=== PATIENT | female | born 1945 ===

== ENCOUNTER 2018-02-09 12:10 | Observation (INO) | payer OTHER ==
[2018-02-09 12:37] VITALS: BMI 31.8
[2018-02-09] MEDS ORDERED: Sodium Chloride 0.9% 1,000 ML IV ONE ×3 (12:54→18:02)
[2018-02-09] MEDS ORDERED: Dextrose 50% SYRINGE Inj (50 ml) IVP STA (12:54)
[2018-02-09] MEDS ORDERED: Dextrose 50% SYRINGE Inj (50 ml) ONE ×2 (13:10→16:33)
[2018-02-09 13:23] LABS: BASO # 0.1 K/uL (0.0-0.2); BASO % 1.2 % (0.0-2.0); EOS # 0.3 K/uL (0.0-0.7); EOS % 3.1 % (0.0-4.0); HEMOGLOBIN 11.8 g/dL (11.0-16.0); LYMPH # 2.6 K/uL (1.0-4.3); LYMPH % 31.1 % (20.0-40.0); MEAN CELL VOLUME 91.1 fL (81.0-99.0); MEAN CORPUSCULAR HEMOGLOBIN 30.9 pg (27.0-31.0); MEAN CORPUSCULAR HGB CONC 33.9 g/dL (33.0-37.0); MONO # 0.7 K/uL (0.0-0.8); NEUT # 4.8 K/uL (1.8-7.0); NEUT % 56.6 % (50.0-75.0); RBC 3.81 Mil/uL (3.80-5.20); RED CELL DISTRIBUTION WIDTH 13.9 % (11.5-14.5); WHITE BLOOD COUNT 8.5 K/uL (4.8-10.8)
[2018-02-09 13:24] LABS: VENOUS BLOOD GAS BASE EXCESS -9.6 mmol/L (0.0-2.0); VENOUS BLOOD GAS PCO2 68 mmHg (40-60); VENOUS BLOOD GAS PO2 40 mm/Hg (30-55)
[2018-02-09] MEDS ORDERED: Sodium Chloride 0.9% 1,000 ML ONE (13:33)
[2018-02-09 13:35] LABS: ALB/GLOB RATIO 1.1 (1.0-2.1); ALT/SGPT 28 U/L (9-52); AST/SGOT 19 U/L (14-36); BLOOD UREA NITROGEN 22 mg/dL (7-17); CALCIUM 9.6 mg/dl (8.6-10.4); GFR AFRICAN-AMERICAN > 60; GFR NON-AFRICAN AMERICAN 54; LIPASE 65 U/L (23-300)
--- NOTE | 2018-02-09 13:35 | RAD ---
PROCEDURE: CHEST RADIOGRAPH, 1 VIEW HISTORY: Diabetic COMPARISON: None available. FINDINGS: LUNGS: Poor inspiration with low lung volumes, crowded bronchovascular markings and minor bibasilar atelectasis. PLEURA: No pneumothorax or pleural fluid seen. CARDIOVASCULAR: Cardiomegaly. OSSEOUS STRUCTURES: No significant abnormalities. VISUALIZED UPPER ABDOMEN: Normal. OTHER FINDINGS: None. IMPRESSION: Poor inspiration with low lung volumes, crowded bronchovascular markings and minor bibasilar atelectasis. Cardiomegaly.
--- NOTE | 2018-02-09 14:03 | C.PDOC ---
History Of Present Illness 72 yo female w/PMHx of IDDM, HTN, hypercholesterolemia come in accompanied by son for evaluation of gradual onset of Right lower back pain radiating down to Right leg/foot for past week. As per son, pt had appendectomy at [facility] 2 weeks ago " and after the surgery developed back pain". Son reports, pt was seen by PMD and was given Percocet without improvement in pain. Otherwise, pt and son denies fever, chills, cough, CP, SOB, dyspnea, palpitation, diaphoresis, abd. pain ( contrary to triage), V/D, UTI sx, denies saddle anesthesia, incontinence, denies weakness, sensory or vascular deficits to B/L LEs. On triage, pt was found to be hypoglycemic, admits feels some nauseous. Ambulate to ED, not in any apparent distress. Time Seen by Provider: 02/09/18 12:27 Chief Complaint (Nursing): Abdominal Pain History Per: Patient, Family Past Medical History Reviewed: Historical Data, Nursing Documentation, Vital Signs Vital Signs: Last Vital Signs Temp 98.4 F 02/09/18 12:27 Pulse 95 H 02/09/18 14:33 Resp 18 02/09/18 14:33 BP 130/65 02/09/18 14:33 Pulse Ox 100 02/09/18 14:35 - Medical History PMH: Anxiety, Arthritis, Asthma, Diabetes (type 2), Fractures (LEFT ARM), HTN Denies: Chronic Kidney Disease Surgical History: Appendectomy (01/2018) - [facility] Procedures COLONOSCOPY (02/17/13) ESOPHAGOGASTRODUODENOSCOPY [EGD] W/CLOSED BIOPSY (02/17/13) Family History: States: Unknown Family Hx - Social History Hx Alcohol Use: No (Former) Hx Substance Use: No - Immunization History Hx Tetanus Toxoid Vaccination: No Hx Influenza Vaccination: No Hx Pneumococcal Vaccination: No Review Of Systems Except As Marked, All Systems Reviewed And Found Negative. Constitutional: Negative for: Fever, Chills Eyes: Negative for: Vision Change ENT: Negative for: Throat Pain Cardiovascular: Negative for: Chest Pain, Palpitations Respiratory: Negative for: Cough, Shortness of Breath, Wheezing Gastrointestinal: Positive for: Nausea. Negative for: Vomiting, Abdominal Pain , Diarrhea Genitourinary: Negative for: Incontinence Musculoskeletal: Positive for: Back Pain. Negative for: Neck Pain Skin: Negative for: Rash Neurological: Negative for: Weakness, Numbness, Altered Mental Status, Headache , Dizziness Physical Exam - Physical Exam Appears: Well, No Acute Distress Skin: Normal Color, Warm, Dry Eye(s): bilateral: PERRL Nose: No Flaring, No Discharge Oral Mucosa: Moist, No Drooling Tongue: Normal Appearing Lips: Normal Appearing Throat: No Erythema, No Drooling Neck: Trachea Midline, Supple Cardiovascular: Rhythm Regular, No Murmur, No JVD Respiratory: No Decreased Breath Sounds, No Accessory Muscle Use, No Stridor, No Wheezing Gastrointestinal/Abdominal: Soft, Tenderness (mild RLQ, no palpabe mass, no skin changes. Well healing ), No Distention, No Guarding, No Rebound Back: No CVA Tenderness, No Vertebral Tenderness, Paraspinal Tenderness (Right lumbar extend down to Right gluteal area) Extremity: Normal ROM, No Tenderness, No Pedal Edema, No Deformity, No Swelling Neurological/Psych: Oriented x3, Normal Speech, Normal Motor, Normal Sensation, Normal Reflexes ED Course And Treatment - Laboratory Results Result Diagrams: 02/09/18 13:18 02/09/18 13:18 Lab Interpretation: No Acute Changes (ABG repeated with normal pH results) ECG: Interpreted By Me, Viewed By Me ECG Rhythm: Sinus Rhythm Interpretation Of ECG: SR@98/min,LAD, prolong QT, no acute ST-T changes. O2 Sat by Pulse Oximetry: 100 Pulse Ox Interpretation: Normal - Other Rad CXR X-Ray: Read By Radiologist Interpretation: IMPRESSION: Poor inspiration with low lung volumes, crowded bronchovascular markings and minor bibasilar atelectasis. Cardiomegaly. - CT Scan/US CT abd/pelvis Other Rad Studies (CT/US): Radiology Report Reviewed CT/US Interpretation: IMPRESSION: Apparent appendectomy. . There is a very small nearly 12 mm elliptical shaped tubular density adjacent to the a presumed metallic clips along the cecum. It is unclear whether this represents some minor postoperative sequela/scar scarring changes or residual stump of the appendix. There are some vague infiltration changes seen about this focus within the adjacent mesentery. Clinical correlation with physical exam and laboratory values recommended . Findings consistent with mild constipation. . Diverticulosis without radiographic evidence of acute diverticulitis. Mild fatty hepatic infiltration. Gallbladder incompletely distended likely due to nonfasting state which presumably accounts slight thick-walled appearance. . No evidence intraluminal gallbladder calculi. See above discussion for additional details. Progress Note: Pt was OBS in ED for 4 hours and remained unchanged. While under OBS, pt FSBS was unstable, episodes of hyperglycemia and hypoglycemia. Otherwise, afebrile, hemodynamicaly stable, non-toxic. Blood work review and appears noraml. pH- 7.38, ketones negative. AG-12. CT abd/plevis review- no acute finidngs. Case discussed with pt's PMD and admission arranged for OBS with Dx: Uncontrolled DM, dehydration. results review with pt, agrees with plan. Disposition - Disposition Disposition: HOSPITALIZED Disposition Time: 16:32 Condition: STABLE Forms: [facility] (Thai) - Clinical Impression Clinical Impression: Uncontrolled diabetes mellitus, Dehydration
[2018-02-09 14:07] LABS: ABG ALLEN TEST POS; ARTERIAL BLOOD GAS HCO3 23.5 mmol/L (21-28); ARTERIAL BLOOD GAS HEMOGLOBIN 9.9 g/dL (11.7-17.4); ARTERIAL BLOOD GAS O2 SAT 98.6 % (95-98); ARTERIAL BLOOD GAS PCO2 39 mm/Hg (35-45); ARTERIAL BLOOD GAS PH 7.38 (7.35-7.45); ARTERIAL BLOOD GAS PO2 90 mm/Hg (80-100); ARTERIAL BLOOD GAS TCO2 24.3 mmol/L (22-28)
[2018-02-09 15:44] LABS: SQUAMOUS EPITHIAL 9 /hpf (0-5); URINE BILIRUBIN NEGATIVE (NEGATIVE); URINE BLOOD NEGATIVE (NEGATIVE); URINE CLARITY Hazy (Clear); URINE COLOR Yellow (YELLOW); URINE GLUCOSE (UA) 1+ mg/dL (Normal); URINE LEUKOCYTE ESTERASE NEG Leu/uL (Negative); URINE PROTEIN 1+ mg/dL (NEGATIVE); URINE UROBILINOGEN NORMAL mg/dL (0.2-1.0)
[2018-02-09] MEDS ORDERED: Iodixanol 320 MG/ML 100 ML BOTTLE IV ONE (15:55)
[2018-02-09] MEDS ORDERED: Dextrose 50% SYRINGE Inj (50 ml) IV STA (16:34)
--- NOTE | 2018-02-09 17:21 | CT ---
PROCEDURE: CT abdomen pelvis dated 02/09/2018. HISTORY: RLQ pain s/p appendectomy COMPARISON: No prior study available comparison. TECHNIQUE: Contiguous axial images of the abdomen and pelvis performed in standard fashion following intravenous injection of approximately 100 cc 320 contrast material. Additional 2D sagittal and coronal reformats generated. Lymph Radiation dose: Total exam DLP = 929.63 mGy-cm. This CT exam was performed using one or more of the following dose reduction techniques: Automated exposure control, adjustment of the mA and/or kV according to patient size, and/or use of iterative reconstruction technique. FINDINGS: LOWER THORAX: Heart is mildly enlarged. No significant pericardial effusion. There is small hiatal hernia. Minor atelectasis seen both lung bases. LIVER: Liver exhibits relatively normal size. Minor diffuse fatty hepatic infiltration. No obvious hepatic mass or collection. GALLBLADDER AND BILE DUCTS: Gallbladder appears incompletely distended which may account for slight thick-walled appearance. Clinical correlation recommended. No evidence of intraluminal gallbladder calculi. PANCREAS: Pancreas is slightly atrophic and fatty replaced. No obvious pancreatic mass collection or calcification. SPLEEN: Spleen exhibits normal size and attenuation pattern without mass collection or calcification ADRENALS: Mildly enlarged left adrenal gland. KIDNEYS AND URETERS: Kidneys demonstrate symmetric nephrograms. No evidence of nephrolithiasis or hydronephrosis. No renal mass or collection. BLADDER: Urinary bladder is incompletely distended which may account minimal bladder wall thickening. Correlation with urinalysis suggested. . REPRODUCTIVE: There appear to be at least 2 small uterine calcifications possibly vascular in origin however the possibility of small calcified uterine fibroids not excluded. APPENDIX: The appendix is not seen and there are apparent metallic clips along the medial aspect of wall of the cecum likely related to prior appendectomy. There is a very small nearly 12 mm elliptical shaped tubular density adjacent to the a presumed metallic clips along the cecum. It is unclear whether this represents some minor postoperative sequela/scar scarring changes or residual stump of the appendix. . These findings are best seen on coronal image number [id number] and axial image number [id number]. . There are some vague infiltration changes seen about this focus within the adjacent mesentery. Clinical correlation with physical exam and laboratory values recommended BOWEL: Evaluation of the bowel is somewhat limited due to the lack of oral contrast material. Stomach is distended with of liquid and air . Presumed pill artifact within the distal gastric antrum visualized loops of small bowel exhibit normal contour and caliber. No evidence of mechanical small bowel obstruction. Moderate amount of stool seen throughout the large-bowel more so on the right side suggesting mild fecal retention/constipation. Scattered colonic diverticula the bulk which arise from sigmoid and distal descending colon. PERITONEUM: Unremarkable. No fluid collection. No free air. There is a small fat containing umbilical hernia. LYMPH NODES: Unremarkable. No enlarged lymph nodes. VASCULATURE: Unremarkable. No aortic aneurysm. BONES: Mild multilevel degenerative spondylosis of the lower thoracic and lumbar spine. OTHER FINDINGS: None. IMPRESSION: Apparent appendectomy. . There is a very small nearly 12 mm elliptical shaped tubular density adjacent to the a presumed metallic clips along the cecum. It is unclear whether this represents some minor postoperative sequela/scar scarring changes or residual stump of the appendix. There are some vague infiltration changes seen about this focus within the adjacent mesentery. Clinical correlation with physical exam and laboratory values recommended . Findings consistent with mild constipation. . Diverticulosis without radiographic evidence of acute diverticulitis. Mild fatty hepatic infiltration. Gallbladder incompletely distended likely due to nonfasting state which presumably accounts slight thick-walled appearance. . No evidence intraluminal gallbladder calculi. See above discussion for additional details.
[2018-02-09 17:52] VITALS: RESP 20
[2018-02-09] MEDS ORDERED: Albuterol 0.083% Inhal Sol (2.5 mg/3 mL) UD INH PRN (20:21)
[2018-02-09] MEDS ORDERED: Oxycodone/Acetaminophen 5/325 mg Tab PO PRN (20:26)
[2018-02-09] MEDS ORDERED: guaiFENesin 200 mg/10 ml Syrup UD PO PRN (20:39)
[2018-02-09] MEDS ORDERED: guaiFENesin 200 mg/10 ml Syrup UD PO SCH (22:00)
[2018-02-09] MEDS: (Novolog) Insulin Aspart, Recombinant 100 u/ml 10 ml vial SC SCH (22:27)
[2018-02-10] MEDS: Albuterol 0.083% Inhal Sol (2.5 mg/3 mL) UD INH SCH ×3 (01:45→19:00)
[2018-02-10] MEDS ORDERED: Albuterol 0.083% Inhal Sol (2.5 mg/3 mL) UD INH SCH (02:00)
--- NOTE | 2018-02-10 03:15 | CP.PCM.HP ---
History of Present Illness - History of Present Illness History of Present Illness: CC: Back pain, weakness ,abdominal pain History Of Present Illness 72 yo female w/PMHx of IDDM, HTN, hypercholesterolemia , bronchial asthaama, depression, chronic pain with lumbago,pt had appendectomy done last week. come in accompanied by son for evaluation of gradual onset of Right lower back pain radiating down to Right leg/foot for past week. As per son, pt had appendectomy at [facility] [place] 2 weeks ago " and after the surgery developed back pain". Son reports, pt was seen by me in office and was given Percocet without improvement in pain. Otherwise, pt and son denies fever, chills, cough, CP, SOB, dyspnea, palpitation, diaphoresis, abd. pain ( contrary to triage), V/D, UTI sx, denies saddle anesthesia, incontinence, denies weakness, sensory or vascular deficits to B/L LEs. On triage, pt was found to be hypoglycemic, admits feels some nauseous. Ambulate to ED, not in any apparent distress.She was found to be hypoglycemic and her sugars were low, she was admitted to stabilize Present on Admission - Present on Admission Any Indicators Present on Admission: Yes Review of Systems - Review of Systems Systems not reviewed;Unavailable: Acuity of Condition - Constitutional Constitutional: Fatigue, Lethargy, Malaise - EENT Eyes: absent: As Per HPI, Blind Spots, Blurred Vision, Change in Vision, Decreased Night Vision, Diplopia, Discharge, Dry Eye, Exophthalmos, Floaters, Irritation, Itchy Eyes, Loss of Peripheral Vision, Pain, Photophobia, Requires Corrective Lenses, Sees Flashes, Spots in Vision, Tunnel Vision, Other Visual Disturbances, Loss of Vision, Other - Cardiovascular Cardiovascular: absent: As Per HPI, Acrocyanosis, Chest Pain, Chest Pain at Rest , Chest Pain with Activity, Claudication, Diaphoresis, Dyspnea, Dyspnea on Exertion, Edema, Irregular Heart Rhythm, Pain Radiating to Arm/Neck/Jaw, Leg Edema, Leg Ulcers, Lightheadedness, Orthopnea, Palpitations, Paroxysmal Nocturnal Dyspnea, Pedal Edema, Radiating Pain, Rapid Heart Rate, Slow Heart Rate, Syncope, Other - Respiratory Respiratory: Cough, Dyspnea - Gastrointestinal Gastrointestinal: Abdominal Pain, Dyspepsia, Nausea - Genitourinary Genitourinary: Flank Pain - Reproductive: Female Reproductive:Female: absent: As Per HPI, Amenorrhea, Amenorrhea/ Control, Currently Menstual, Cycle <21 Days, Cycle >35 Days, Cycle Variable, Menses 1-7 Days, Menses >/= 8 Days, Menses Variable, Cycle > 4 Weeks Between, No Menses for 6 Months, Heavy Menses, Light Menses, Normal Menses, Spotting Between Cycles , S/P Hysterectomy, Menopausal, Post Menopausal, Premenarche, Abnormal Vaginal Bleeding, Dysmenorrhea, Dyspareunia, Genital Lesions, Genital Pruritis, Pelvic Pain, Prolapse Symptoms, Sexual Dysfunction, Vaginal Discharge, Vaginal Dryness , Vaginal Odor, Vaginal Pruritis, Other - Musculoskeletal Musculoskeletal: Muscle Weakness, Stiffness, Tingling - Endocrine Endocrine: Fatigue, Polydipsia, Polyphagia, Polyuria Past Patient History - Past Medical History & Family History Past Medical History?: Yes - Past Social History Smoking Status: Former Smoker - CARDIAC Hx Hypertension: Yes - PULMONARY Hx Asthma: Yes - NEUROLOGICAL Hx Neurological Disorder: No - HEENT Hx HEENT Problems: Yes Hx Cataracts: Yes (RIGHT EYE IOL) - RENAL Hx Chronic Kidney Disease: No - ENDOCRINE/METABOLIC Hx Diabetes Mellitus Type 1: Yes - HEMATOLOGICAL/ONCOLOGICAL Hx Blood Disorders: No - INTEGUMENTARY Hx Dermatological Problems: No - MUSCULOSKELETAL/RHEUMATOLOGICAL Hx Arthritis: Yes Hx Falls: Yes Hx Fractures: Yes (LEFT ARM) - GASTROINTESTINAL Other/Comment: ''COLON PROBLEM'' - GENITOURINARY/GYNECOLOGICAL Hx Genitourinary Disorders: No - PSYCHIATRIC Hx Anxiety: Yes Hx Substance Use: No - SURGICAL HISTORY Hx Appendectomy: Yes (01/2018) - ANESTHESIA Hx Anesthesia: Yes Hx Anesthesia Reactions: No Hx Malignant Hyperthermia: No Meds Allergies/Adverse Reactions: Allergies Allergy/AdvReac Type Severity Reaction Status Date / Time Penicillins Allergy RASH Verified 05/21/16 11:35 Physical Exam - Constitutional Appears: Well - Head Exam Head Exam: ATRAUMATIC, NORMAL INSPECTION, NORMOCEPHALIC - Eye Exam Eye Exam: EOMI, Normal appearance, PERRL Pupil Exam: NORMAL ACCOMODATION, PERRL - ENT Exam ENT Exam: Mucous Membranes Moist, Normal Exam - Neck Exam Neck exam: Positive for: Normal Inspection - Respiratory Exam Respiratory Exam: Clear to Auscultation Bilateral, NORMAL BREATHING PATTERN - Cardiovascular Exam Cardiovascular Exam: REGULAR RHYTHM - GI/Abdominal Exam GI & Abdominal Exam: Normal Bowel Sounds, Soft. absent: Tenderness - Rectal Exam Rectal Exam: NORMAL INSPECTION - Exam Exam: Circumcision, NORMAL INSPECTION External exam: NORMAL EXTERNAL EXAM Speculum exam: NORMAL SPECULUM EXAM Bimanual exam: NORMAL BIMANUAL EXAM - Extremities Exam Extremities exam: Positive for: normal inspection - Back Exam Back exam: NORMAL INSPECTION, paraspinal tenderness - Neurological Exam Neurological exam: Alert, CN II-XII Intact, Normal Gait, Oriented x3, Reflexes Normal - Psychiatric Exam Psychiatric exam: Normal Affect, Normal Mood - Skin Skin Exam: Dry, Intact, Normal Color, Warm Results - Vital Signs Recent Vital Signs: Last Vital Signs Temp 98.1 F 02/10/18 00:00 Pulse 74 02/10/18 00:00 Resp 20 02/10/18 00:00 BP 136/81 02/10/18 00:00 Pulse Ox 97 02/10/18 00:00 - Labs Result Diagrams: 02/10/18 10:38 02/10/18 10:38 Labs: Laboratory Results - last 24 hr 02/09/18 02/09/18 02/09/18 12:35 12:36 12:54 WBC RBC Hgb Hct MCV MCH MCHC RDW Plt Count MPV Neut % (Auto) Lymph % (Auto) [place] % (Auto) Eos % (Auto) Baso % (Auto) Neut # (Auto) Lymph # (Auto) [place] # (Auto) Eos # (Auto) Baso # (Auto) Puncture Site pCO2 pO2 HCO3 ABG pH ABG Total CO2 ABG O2 Saturation ABG Base Excess ABG Hemoglobin ABG Carboxyhemoglobin POC ABG HHb (Measured) ABG Methemoglobin Mohinder Test VBG pH VBG pCO2 VBG HCO3 VBG Total CO2 VBG O2 Sat (Calc) VBG Base Excess A-a O2 Difference Respiratory Index Hgb O2 Saturation Sodium Chloride Glucose Lactate FiO2 Crit Value Called To Crit Value Called By Crit Value Read Back Blood Gas Notified Time Potassium Carbon Dioxide Anion Gap BUN Creatinine Est GFR ( Amer) Est GFR (Non-Af Amer) POC Glucose (mg/dL) 50 L 53 L 53 L Random Glucose Calcium Total Bilirubin AST ALT Alkaline Phosphatase Total Protein Albumin Globulin Albumin/Globulin Ratio Lipase Urine Color Urine Clarity Urine pH Ur Specific [place] Urine Protein Urine Glucose (UA) Urine Ketones Urine Blood Urine Nitrate Urine Bilirubin Urine Urobilinogen Ur Leukocyte Esterase Urine WBC (Auto) Urine RBC (Auto) Ur Squamous Epith Cells Hyaline Casts B-Hydroxybutyrate 02/09/18 02/09/18 02/09/18 12:56 13:15 13:18 WBC 8.5 RBC 3.81 Hgb 11.8 Hct 34.7 MCV 91.1 MCH 30.9 MCHC 33.9 RDW 13.9 Plt Count 339 MPV 10.0 Neut % (Auto) 56.6 Lymph % (Auto) 31.1 [place] % (Auto) 8.0 Eos % (Auto) 3.1 Baso % (Auto) 1.2 Neut # (Auto) 4.8 Lymph # (Auto) 2.6 [place] # (Auto) 0.7 Eos # (Auto) 0.3 Baso # (Auto) 0.1 Puncture Site pCO2 pO2 40 HCO3 ABG pH ABG Total CO2 ABG O2 Saturation ABG Base Excess ABG Hemoglobin ABG Carboxyhemoglobin POC ABG HHb (Measured) ABG Methemoglobin Mohinder Test VBG pH 7.10 L* VBG pCO2 68 H* VBG HCO3 16.2 VBG Total CO2 23.2 VBG O2 Sat (Calc) 65.3 H VBG Base Excess -9.6 L A-a O2 Difference Respiratory Index Hgb O2 Saturation Sodium 128.0 L Chloride 110.0 H Glucose 62 L Lactate 2.0 FiO2 Crit Value Called To Er nurse Crit Value Called By Celio rt Crit Value Read Back Y Blood Gas Notified Time 1323 Potassium Carbon Dioxide Anion Gap BUN Creatinine Est GFR ( Amer) Est GFR (Non-Af Amer) POC Glucose (mg/dL) 58 L Random Glucose Calcium Total Bilirubin AST ALT Alkaline Phosphatase Total Protein Albumin Globulin Albumin/Globulin Ratio Lipase Urine Color Urine Clarity Urine pH Ur Specific [place] Urine Protein Urine Glucose (UA) Urine Ketones Urine Blood Urine Nitrate Urine Bilirubin Urine Urobilinogen Ur Leukocyte Esterase Urine WBC (Auto) Urine RBC (Auto) Ur Squamous Epith Cells Hyaline Casts B-Hydroxybutyrate 02/09/18 02/09/18 02/09/18 13:18 13:26 14:00 WBC RBC Hgb Hct MCV MCH MCHC RDW Plt Count MPV Neut % (Auto) Lymph % (Auto) [place] % (Auto) Eos % (Auto) Baso % (Auto) Neut # (Auto) Lymph # (Auto) [place] # (Auto) Eos # (Auto) Baso # (Auto) Puncture Site Rba pCO2 39 pO2 90 HCO3 23.5 ABG pH 7.38 ABG Total CO2 24.3 ABG O2 Saturation 98.6 H ABG Base Excess -1.8 ABG Hemoglobin 9.9 L ABG Carboxyhemoglobin 1.6 H POC ABG HHb (Measured) 1.4 ABG Methemoglobin 1.3 Mohinder Test Pos VBG pH VBG pCO2 VBG HCO3 VBG Total CO2 VBG O2 Sat (Calc) VBG Base Excess A-a O2 Difference 11.0 Respiratory Index 0.1 Hgb O2 Saturation 95.6 Sodium 147 Chloride 109 H Glucose Lactate FiO2 21.0 Crit Value Called To Crit Value Called By Crit Value Read Back Blood Gas Notified Time Potassium 3.9 Carbon Dioxide 26 Anion Gap 16 BUN 22 H Creatinine 1.0 Est GFR ( Amer) > 60 Est GFR (Non-Af Amer) 54 POC Glucose (mg/dL) 220 H Random Glucose 68 Calcium 9.6 Total Bilirubin 0.8 AST 19 ALT 28 Alkaline Phosphatase 123 Total Protein 7.6 Albumin 4.0 Globulin 3.6 Albumin/Globulin Ratio 1.1 Lipase 65 Urine Color Urine Clarity Urine pH Ur Specific [place] Urine Protein Urine Glucose (UA) Urine Ketones Urine Blood Urine Nitrate Urine Bilirubin Urine Urobilinogen Ur Leukocyte Esterase Urine WBC (Auto) Urine RBC (Auto) Ur Squamous Epith Cells Hyaline Casts B-Hydroxybutyrate 0.09 02/09/18 02/09/18 02/09/18 14:58 15:27 17:43 WBC RBC Hgb Hct MCV MCH MCHC RDW Plt Count MPV Neut % (Auto) Lymph % (Auto) [place] % (Auto) Eos % (Auto) Baso % (Auto) Neut # (Auto) Lymph # (Auto) [place] # (Auto) Eos # (Auto) Baso # (Auto) Puncture Site pCO2 pO2 HCO3 ABG pH ABG Total CO2 ABG O2 Saturation ABG Base Excess ABG Hemoglobin ABG Carboxyhemoglobin POC ABG HHb (Measured) ABG Methemoglobin Mohinder Test VBG pH VBG pCO2 VBG HCO3 VBG Total CO2 VBG O2 Sat (Calc) VBG Base Excess A-a O2 Difference Respiratory Index Hgb O2 Saturation Sodium Chloride Glucose Lactate FiO2 Crit Value Called To Crit Value Called By Crit Value Read Back Blood Gas Notified Time Potassium Carbon Dioxide Anion Gap BUN Creatinine Est GFR ( Amer) Est GFR (Non-Af Amer) POC Glucose (mg/dL) 115 H 146 H Random Glucose Calcium Total Bilirubin AST ALT Alkaline Phosphatase Total Protein Albumin Globulin Albumin/Globulin Ratio Lipase Urine Color Yellow Urine Clarity Hazy Urine pH 5.0 Ur Specific [place] 1.023 Urine Protein 1+ H Urine Glucose (UA) 1+ Urine Ketones Negative Urine Blood Negative Urine Nitrate Negative Urine Bilirubin Negative Urine Urobilinogen Normal Ur Leukocyte Esterase Neg Urine WBC (Auto) 2 Urine RBC (Auto) 1 Ur Squamous Epith Cells 9 H Hyaline Casts 3-5 H B-Hydroxybutyrate 02/09/18 21:15 WBC RBC Hgb Hct MCV MCH MCHC RDW Plt Count MPV Neut % (Auto) Lymph % (Auto) [place] % (Auto) Eos % (Auto) Baso % (Auto) Neut # (Auto) Lymph # (Auto) [place] # (Auto) Eos # (Auto) Baso # (Auto) Puncture Site pCO2 pO2 HCO3 ABG pH ABG Total CO2 ABG O2 Saturation ABG Base Excess ABG Hemoglobin ABG Carboxyhemoglobin POC ABG HHb (Measured) ABG Methemoglobin Mohinder Test VBG pH VBG pCO2 VBG HCO3 VBG Total CO2 VBG O2 Sat (Calc) VBG Base Excess A-a O2 Difference Respiratory Index Hgb O2 Saturation Sodium Chloride Glucose Lactate FiO2 Crit Value Called To Crit Value Called By Crit Value Read Back Blood Gas Notified Time Potassium Carbon Dioxide Anion Gap BUN Creatinine Est GFR ( Amer) Est GFR (Non-Af Amer) POC Glucose (mg/dL) 181 H Random Glucose Calcium Total Bilirubin AST ALT Alkaline Phosphatase Total Protein Albumin Globulin Albumin/Globulin Ratio Lipase Urine Color Urine Clarity Urine pH Ur Specific [place] Urine Protein Urine Glucose (UA) Urine Ketones Urine Blood Urine Nitrate Urine Bilirubin Urine Urobilinogen Ur Leukocyte Esterase Urine WBC (Auto) Urine RBC (Auto) Ur Squamous Epith Cells Hyaline Casts B-Hydroxybutyrate Assessment & Plan (1) Dehydration Status: Acute (2) Uncontrolled diabetes mellitus Status: Acute (3) Hypoglycemia Status: Acute
[2018-02-10] MEDS: (Novolog) Insulin Aspart, Recombinant 100 u/ml 10 ml vial SC SCH ×4 (08:15→21:34)
[2018-02-10 10:46] LABS: BASO # 0.1 K/uL (0.0-0.2); BASO % 1.2 % (0.0-2.0); EOS # 0.3 K/uL (0.0-0.7); EOS % 3.7 % (0.0-4.0); HEMOGLOBIN 11.1 g/dL (11.0-16.0); LYMPH # 1.6 K/uL (1.0-4.3); LYMPH % 22.7 % (20.0-40.0); MEAN CELL VOLUME 91.7 fL (81.0-99.0); MEAN CORPUSCULAR HEMOGLOBIN 30.8 pg (27.0-31.0); MEAN CORPUSCULAR HGB CONC 33.6 g/dL (33.0-37.0); MEAN PLATELET VOLUME 10.5 fL (7.2-11.7); MONO # 0.5 K/uL (0.0-0.8); MONO % 6.7 % (0.0-10.0); NEUT # 4.6 K/uL (1.8-7.0); NEUT % 65.7 % (50.0-75.0); RBC 3.61 Mil/uL (3.80-5.20); RED CELL DISTRIBUTION WIDTH 14.2 % (11.5-14.5)
[2018-02-10] MEDS: Enoxaparin 40 mg Syringe SC SCH (10:57)
[2018-02-10 11:10] LABS: BLOOD UREA NITROGEN 16 mg/dL (7-17); CALCIUM 8.7 mg/dl (8.6-10.4); GFR AFRICAN-AMERICAN > 60; GFR NON-AFRICAN AMERICAN > 60
[2018-02-10] MEDS: Oxycodone/Acetaminophen 5/325 mg Tab PO PRN ×2 (11:59→22:06)
[2018-02-10] MEDS: Sacubitril/Valsartan 24-26mg Tab PO SCH (11:59)
[2018-02-10] MEDS ORDERED: Aluminum Hydroxide/Magnesium Hydroxide Susp (30 mL) PO ONE (16:45)
[2018-02-10] MEDS ORDERED: Oxycodone/Acetaminophen 5/325 mg Tab PO PRN (16:47)
[2018-02-10] MEDS: (Novolin 70/30) NPH/Regular 70/30 Units/ml 10 ml vial SC SCH (17:59)
--- NOTE | 2018-02-10 20:01 | CARD ---
APPROVED REPORT EKG Measurement Heart [id number] <Conclusion> Normal sinus rhythm Possible Left atrial enlargement Left axis deviation Left ventricular hypertrophy Nonspecific T wave abnormality Prolonged QT Abnormal ECG
--- NOTE | 2018-02-10 23:41 | CP.PCM.PN ---
Subjective - Date & Time of Evaluation Date of Evaluation: 02/10/18 Time of Evaluation: 17:35 - Subjective Subjective: Pt seen & examined at bedside Objective - Vital Signs/Intake and Output Vital Signs (last 24 hours): Temp Pulse Resp BP Pulse Ox 98.2 F 76 20 143/87 98 02/10/18 15:30 02/10/18 15:30 02/10/18 15:30 02/10/18 17:58 02/10/18 15:30 Intake and Output: 02/10/18 02/11/18 18:59 06:59 Intake Total 780 350 Balance 780 350 - Medications Medications: Current Medications Albuterol Sulfate (Albuterol 0.083% Inhal Ann Marie (2.5 Mg/3 Ml) Ud) 2.5 mg INH RQ6 [facility] Last Admin: 02/10/18 19:00 Dose: Not Given Clopidogrel Bisulfate (Plavix) 75 mg PO DAILY [facility] Last Admin: 02/10/18 10:58 Dose: 75 mg Enoxaparin Sodium (Lovenox) 40 mg SC DAILY [facility] Last Admin: 02/10/18 10:57 Dose: 40 mg Escitalopram Oxalate (Lexapro) 10 mg PO DAILY [facility] Last Admin: 02/10/18 10:59 Dose: 10 mg Famotidine (Pepcid) 20 mg PO BID [facility] Last Admin: 02/10/18 17:58 Dose: 20 mg Gabapentin (Neurontin) 100 mg PO TID [facility] Last Admin: 02/10/18 17:59 Dose: 100 mg Guaifenesin (Robitussin) 200 mg PO Q4H PRN PRN Reason: cough Insulin Aspart (Novolog) 0 unit SC ACHS [facility] PRN Reason: Protocol Last Admin: 02/10/18 21:34 Dose: Not Given Insulin Human Isoph/Insulin Regular (Novolin 70/30 (70/30 Units/Ml) 10 Ml) 40 units SC ACD [facility] Last Admin: 02/10/18 17:59 Dose: 40 units Insulin Human Isoph/Insulin Regular (Novolin 70/30 (70/30 Units/Ml) 10 Ml) 20 units SC ACB [facility] Metoprolol Tartrate (Lopressor) 25 mg PO BID [facility] Last Admin: 02/10/18 17:58 Dose: 25 mg Montelukast Sodium (Singulair) 10 mg PO HS [facility] Last Admin: 02/10/18 21:31 Dose: 10 mg Oxycodone/Acetaminophen (Percocet 5/325 Mg Tab) 1 tab PO Q4H PRN PRN Reason: Pain, moderate (4-7) Stop: 02/12/18 20:37 Last Admin: 02/10/18 22:06 Dose: 1 tab Oxycodone/Acetaminophen (Percocet 5/325 Mg Tab) 1 tab PO Q4H PRN PRN Reason: Pain, severe (8-10) Stop: 02/12/18 20:27 Sacubitril/Valsartan (Entresto 24 Mg-26 Mg) 1 tab PO DAILY [facility] Last Admin: 02/10/18 11:59 Dose: 1 tab Spironolactone (Aldactone) 25 mg PO DAILY [facility] Last Admin: 02/10/18 10:58 Dose: 25 mg - Labs Labs: 02/10/18 10:38 02/10/18 10:38 Assessment and Plan (1) Dehydration Status: Acute (2) Uncontrolled diabetes mellitus Status: Acute
[2018-02-11] MEDS: Albuterol 0.083% Inhal Sol (2.5 mg/3 mL) UD INH SCH ×4 (01:36→19:32)
[2018-02-11] MEDS ORDERED: (Novolin 70/30) NPH/Regular 70/30 Units/ml 10 ml vial SC SCH (07:30)
[2018-02-11] MEDS: (Novolog) Insulin Aspart, Recombinant 100 u/ml 10 ml vial SC SCH ×3 (07:30→17:51)
[2018-02-11 07:49] VITALS: TEMP 98.3
[2018-02-11] MEDS: Enoxaparin 40 mg Syringe SC SCH (10:47)
[2018-02-11] MEDS: Sacubitril/Valsartan 24-26mg Tab PO SCH (10:48)
[2018-02-11] MEDS: Oxycodone/Acetaminophen 5/325 mg Tab PO PRN (10:51)
--- NOTE | 2018-02-11 11:14 | RAD ---
PROCEDURE: Radiographs of the Lumbar Spine. HISTORY: rt hip pain radiating to rt leg COMPARISON: CT scan of the abdomen pelvis dated 02/09/2018. FINDINGS: BONES: Normal alignment. No listhesis. No fracture. DISC SPACES: Multilevel disc space narrowing, most prominent at L5-S1, with diffuse endplate spurring. OTHER FINDINGS: None. IMPRESSION: No acute fracture. Multilevel degenerative changes.
--- NOTE | 2018-02-11 16:05 | VASCLAB ---
PROCEDURE: Right Lower Extremity Venous Duplex Exam. HISTORY: Pain in limb PRIORS: None. TECHNIQUE: Right common femoral, femoral, popliteal and posterior tibial, peroneal and great saphenous veins were evaluated. Flow was assessed with color Doppler, compressibility, assessment of phasic flow and augmentation response. Report prepared by YURIDIA Al FINDINGS: RIGHT: 1. Common Femoral Vein: 1.1. Compressibility - Fully compressible: Thrombus - None: Flow - Phasic: Augmentation -Normal: Reflux - None. 2. Femoral Vein: 2.1. Compressibility - Fully compressible: Thrombus - None: Flow - Phasic: Augmentation -Normal: Reflux - None. 3. Popliteal Vein: 3.1. Compressibility - Fully compressible: Thrombus - None: Flow - Phasic: Augmentation -Normal: Reflux - None. 4. Posterior Tibial Vein: 4.1. Compressibility - Fully compressible: Thrombus - None: Flow - Phasic: Augmentation -Normal: Reflux - None. 5. Peroneal Vein: 5.1. Compressibility - Fully compressible: Thrombus - None: Flow - Phasic: Augmentation -Normal: Reflux - None. 6. Great Saphenous Vein: 6.1. Compressibility - Fully compressible: Thrombus -None: Flow - Phasic: Augmentation - Normal: Reflux - None. OTHER FINDINGS: IMPRESSION: No evidence of deep or superficial vein thrombosis of the right lower extremity with excellent venous flow. Normal valve function noted of the right side. Normal venous flow noted in the left common femoral vein.
--- NOTE | 2018-02-11 16:20 | CP.PCM.PN ---
Subjective - Date & Time of Evaluation Date of Evaluation: 02/11/18 Time of Evaluation: 16:18 - Subjective Subjective: PT SEEN TODAY WITH DR. WONG, WHO IS COVERING FOR DR. MELGOZA. STAT VENOUS DOPPLER DONE OF RLE AND NEG. DISCUSSED RESULTS WITH DR. WONG AND DR. MELGOZA AND BOTH IN AGREEMENT TO D/C HOME TODAY. PT HAS CANE AT BEDSIDE. RX GIVEN FOR PAIN MANAGEMENT. NEW INSULIN DOSES PER DR. MELGOZA'S REQUEST. PT UPSET THAT SHE IS BEING D/C STATING "I WANT TO STAY HERE MORE DAYS; MY LEG HURTS." DISCUSSED WITH CM, PT DOES NOT MEET IP CRITERIA. ALL RX AND D/C INFORMATION DISCUSSED WITH PT. NO FURTHER ORDERS. Objective - Vital Signs/Intake and Output Vital Signs (last 24 hours): Temp Pulse Resp BP Pulse Ox 98.3 F 84 20 130/82 97 02/11/18 07:00 02/11/18 07:00 02/11/18 07:00 02/11/18 10:49 02/11/18 12:05 Intake and Output: 02/11/18 02/11/18 06:59 18:59 Intake Total 650 Balance 650 - Medications Medications: Current Medications Albuterol Sulfate (Albuterol 0.083% Inhal Ann Marie (2.5 Mg/3 Ml) Ud) 2.5 mg INH RQ6 [facility] Last Admin: 02/11/18 14:20 Dose: Not Given Clopidogrel Bisulfate (Plavix) 75 mg PO DAILY [facility] Last Admin: 02/11/18 10:49 Dose: 75 mg Enoxaparin Sodium (Lovenox) 40 mg SC DAILY [facility] Last Admin: 02/11/18 10:47 Dose: 40 mg Escitalopram Oxalate (Lexapro) 10 mg PO DAILY [facility] Last Admin: 02/11/18 10:47 Dose: 10 mg Famotidine (Pepcid) 20 mg PO BID [facility] Last Admin: 02/11/18 10:45 Dose: 20 mg Gabapentin (Neurontin) 100 mg PO TID [facility] Last Admin: 02/11/18 13:47 Dose: Not Given Guaifenesin (Robitussin) 200 mg PO Q4H PRN PRN Reason: cough Insulin Aspart (Novolog) 0 unit SC ACHS [facility] PRN Reason: Protocol Last Admin: 02/11/18 12:03 Dose: 4 unit Insulin Human Isoph/Insulin Regular (Novolin 70/30 (70/30 Units/Ml) 10 Ml) 40 units SC ACD [facility] Last Admin: 02/10/18 17:59 Dose: 40 units Insulin Human Isoph/Insulin Regular (Novolin 70/30 (70/30 Units/Ml) 10 Ml) 20 units SC ACB [facility] Last Admin: 02/11/18 07:30 Dose: 20 units Metformin HCl (Glucophage) 500 mg PO BID [facility] Metoprolol Tartrate (Lopressor) 25 mg PO BID [facility] Last Admin: 02/11/18 10:49 Dose: 25 mg Montelukast Sodium (Singulair) 10 mg PO HS [facility] Last Admin: 02/10/18 21:31 Dose: 10 mg Oxycodone/Acetaminophen (Percocet 5/325 Mg Tab) 1 tab PO Q4H PRN PRN Reason: Pain, moderate (4-7) Stop: 02/12/18 20:37 Last Admin: 02/11/18 10:51 Dose: 1 tab Oxycodone/Acetaminophen (Percocet 5/325 Mg Tab) 1 tab PO Q4H PRN PRN Reason: Pain, severe (8-10) Stop: 02/12/18 20:27 Sacubitril/Valsartan (Entresto 24 Mg-26 Mg) 1 tab PO DAILY [facility] Last Admin: 02/11/18 10:48 Dose: 1 tab Spironolactone (Aldactone) 25 mg PO DAILY [facility] Last Admin: 02/11/18 10:48 Dose: 25 mg - Labs Labs: 02/10/18 10:38 02/10/18 10:38
[2018-02-11 16:26] VITALS: BP 145/67; PULSE 71; O2SAT 98
[2018-02-11] MEDS: (Novolin 70/30) NPH/Regular 70/30 Units/ml 10 ml vial SC SCH ×2 (17:51→17:56)
--- NOTE | 2018-02-12 07:15 | PN ---
DATE: 02/11/[address] Deangelo Coates. SUBJECTIVE: The patient denies any chest pain or abdominal pain. She denies any nausea or vomiting. She is experiencing right hip pain, which has been there prior to her recent appendectomy surgery at [facility] a few weeks ago. PHYSICAL EXAMINATION: VITAL SIGNS: Blood pressure 145/67, heart rate 71, temperature 98.3, and respirations 20. HEENT: Normocephalic. CHEST: Clear. HEART: S1 and S2 are regular. ABDOMEN: Soft. EXTREMITIES: No edema. There was mild right calf tenderness. LABORATORY DATA: Hemoglobin and hematocrit yesterday 11.1 and 33.1. White count and platelet count are within normal limits. Today's blood sugars are 171, 236, and 166 in the sequence. Abdomen and pelvis CT scan, apparent appendectomy. There is a very small nearly 12-mm elliptical shaped tubular density adjacent to the presumed metallic clip along the cecum. It is unclear whether this represents some minor postoperative sequela/scar or it resembled appendix. There were some vague infiltrative changes seen about the sulcus within the adjacent mesentery. Clinical correlation is recommended. Mild fatty liver. Gallbladder is completely distended. No evidence of intraluminal calculi. EKG revealed sinus rhythm at the rate of 98. LVH and prolonged QT interval. SMA-7 is within normal limits except glucose of 399. I did order venous Doppler of lower extremities, which revealed no evidence of DVT. ASSESSMENT: 1. Uncontrolled diabetes mellitus. 2. Status post recent appendectomy. 3. Hypertension. 4. Uncontrolled diabetes mellitus. PLAN: The patient will be maintained on Aldactone, Glucophage, Lopressor, subcutaneous Lovenox, Neurontin, Plavix, and Singulair. The patient will be discharged later this afternoon and was advised if abdominal pain, nausea or vomiting developed, the patient should present back to the emergency room. The lumbar spine x-ray AP and lateral revealed no acute fracture, multilevel degenerative changes. Luis Carlos Self MD
== END 2018-02-11 20:18 | disposition home or self-care (01) ==
LOC: C.ER 12:10 → C.9E 16:33 → C.3T 17:55
PROVIDERS: ADMIT Internal Medicine; ATTEND Internal Medicine
DX: E10.649 Type 1 diabetes mellitus with hypoglycemia without coma (principal); E86.0 Dehydration; Z79.4 Long term (current) use of insulin; I10 Essential (primary) hypertension; E78.00 Pure hypercholesterolemia, unspecified; J45.909 Unspecified asthma, uncomplicated; F32.9 Major depressive disorder, single episode, unspecified; Z87.891 Personal history of nicotine dependence
CPT/HCPCS: 36415; 71045; 72100; 74177; 80048; 80053; 81001; 82009; 82803; 82948; 83690; 85025; 93005; 93971; 96360; 96374; 97116; 97162; 99285; G0378; G8978; G8979; J1650; J1885; J7030; Q9967

== ENCOUNTER 2018-10-17 11:49 | Emergency (ER) | payer OTHER ==
[2018-10-17 11:49] VITALS: BMI 31.8
[2018-10-17 11:58] VITALS: BP 113/73; PULSE 108; RESP 20; TEMP 98.2; O2SAT 98
--- NOTE | 2018-10-17 12:28 | C.PDOC ---
History Of Present Illness 73 y/o female presents to the ED for evaluation of persistent right thumb pain for 3 months. Patient reports being evaluated at [facility] for the same, was given unknown injections in the thumb and told to apply unknown topical solution described as medicine thats like glue. Reports no improvement. Current symptoms are unchanged from prior. She complains of pain to the top of thumb, occasionally radiating along the right thumb tendon. Pain worsens with movement. She tried occasional OTC pain medication with limited improvement. Denies prior thumb or nail injury. Time Seen by Provider: 10/17/18 12:06 Chief Complaint (Nursing): Upper Extremity Problem/Injury History Per: Patient History/Exam Limitations: no limitations Onset/Duration Of Symptoms: Days (> 3 months) Current Symptoms Are (Timing): Still Present Past Medical History Reviewed: Historical Data, Nursing Documentation, Vital Signs Vital Signs: Last Vital Signs Temp 98.2 F 10/17/18 11:55 Pulse 108 H 10/17/18 11:55 Resp 20 10/17/18 11:55 BP 113/73 10/17/18 11:55 Pulse Ox 98 10/17/18 11:55 - Medical History PMH: Anxiety, Arthritis, Asthma, Diabetes (type 2), Fractures (LEFT ARM), HTN Denies: Chronic Kidney Disease Surgical History: Appendectomy (01/2018) - [facility] Procedures COLONOSCOPY (02/17/13) ESOPHAGOGASTRODUODENOSCOPY [EGD] W/CLOSED BIOPSY (02/17/13) Family History: States: Unknown Family Hx - Social History Hx Alcohol Use: No Hx Substance Use: No - Immunization History Hx Tetanus Toxoid Vaccination: No Hx Influenza Vaccination: No Hx Pneumococcal Vaccination: No Review Of Systems Except As Marked, All Systems Reviewed And Found Negative. Constitutional: Negative for: Fever, Chills Musculoskeletal: Positive for: Hand Pain (right thumb pain) Skin: Negative for: Rash, Lesions Neurological: Negative for: Weakness, Numbness Physical Exam - Physical Exam Appears: Non-toxic, No Acute Distress Skin: Warm, Other (Right hand clear, unknown topical substance hardened applied by patient on tip of fingernail to 1st digit, No gross fingernail abnormality, No paronychia or swelling, No tenderness) Head: Atraumatic, Normacephalic Eye(s): bilateral: Normal Inspection Neck: Normal ROM Chest: Symmetrical Respiratory: No Accessory Muscle Use, Other (NARD) Extremity: Normal ROM (with full AROM of righ 1st digit and right wrist), No Deformity Pulses: Left Radial: Normal, Right Radial: Normal Neurological/Psych: Oriented x3 ED Course And Treatment O2 Sat by Pulse Oximetry: 98 (RA) Pulse Ox Interpretation: Normal Medical Decision Making Medical Decision Making: Patient is a poor historian. No acute findings. Counseled patient regarding likely diagnosis, emphasized the importance of hand specialist evaluation. Plan: Finger splint provided. Patient advised to continue NSAIDs and follow up with specialist. Will discharge patient home with RX for Naproxen and Tramadol Disposition Counseled Patient/Family Regarding: Diagnosis, Need For Followup, Rx Given - Disposition Referrals: [facility] [Outside] [facility] [Outside] Deangelo Coates MD [Staff Provider] - Disposition: HOME/ ROUTINE Disposition Time: 12:28 Condition: GOOD Prescriptions: Naproxen 250 mg PO BID #30 tablet Tramadol HCl [Ultram] 50 mg PO QID #20 tab Instructions: Tenosynovitis (DC) Forms: [employer] (Northern Irish) Print Language: DIVEHI - POA Present On Arrival: None - Clinical Impression Clinical Impression: Tenosynovitis of thumb, Chronic pain - Scribe Statement The provider has reviewed the documentation as recorded by the Jj Vila Provider Attestation: All medical record entries made by the Luciiboren were at my direction and personally dictated by me. I have reviewed the chart and agree that the record accurately reflects my personal performance of the history, physical exam, medical decision making, and the department course for this patient. I have also personally directed, reviewed, and agree with the discharge instructions and disposition.
== END 2018-10-17 12:45 | disposition home or self-care (01) ==
LOC: C.ER 11:49
DX: M65.88 Other synovitis and tenosynovitis, other site (principal); G89.29 Other chronic pain

== ENCOUNTER 2018-10-24 11:51 | Emergency (ER) | payer OTHER ==
[2018-10-24 11:51] VITALS: BMI 31.8
[2018-10-24 14:18] LABS: SQUAMOUS EPITHIAL < 1 /hpf (0-5); URINE BILIRUBIN NEGATIVE (NEGATIVE); URINE BLOOD NEGATIVE (NEGATIVE); URINE CLARITY Clear (Clear); URINE COLOR Straw (YELLOW); URINE GLUCOSE (UA) NORMAL (Normal); URINE LEUKOCYTE ESTERASE NEG Leu/uL (Negative); URINE PROTEIN NEGATIVE (NEGATIVE); URINE UROBILINOGEN NORMAL mg/dL (0.2-1.0)
[2018-10-24 14:20] LABS: BASO # 0.1 K/uL (0.0-0.2); BASO % 1.2 % (0.0-2.0); EOS # 0.1 K/uL (0.0-0.7); EOS % 2.1 % (0.0-4.0); HEMOGLOBIN 11.5 g/dL (11.0-16.0); LYMPH # 1.6 K/uL (1.0-4.3); LYMPH % 22.7 % (20.0-40.0); MEAN CELL VOLUME 93.8 fL (81.0-99.0); MEAN CORPUSCULAR HEMOGLOBIN 31.2 pg (27.0-31.0); MEAN CORPUSCULAR HGB CONC 33.3 g/dL (33.0-37.0); MEAN PLATELET VOLUME 10.9 fL (7.2-11.7); MONO # 0.6 K/uL (0.0-0.8); MONO % 8.5 % (0.0-10.0); NEUT # 4.6 K/uL (1.8-7.0); NEUT % 65.5 % (50.0-75.0); NRBC % 0.1 % (0.0-2.0); RBC 3.68 Mil/uL (3.80-5.20); RED CELL DISTRIBUTION WIDTH 13.9 % (11.5-14.5)
[2018-10-24 14:24] LABS: PROTHROMBIN TIME 11.3 SECONDS (9.7-12.2)
[2018-10-24 14:29] LABS: ALB/GLOB RATIO 1.2 (1.0-2.1); ALBUMIN 3.8 g/dL (3.5-5.0); ALT/SGPT 26 U/L (9-52); AST/SGOT 22 U/L (14-36); BLOOD UREA NITROGEN 25 mg/dL (7-17); CALCIUM 9.4 mg/dl (8.6-10.4); GFR NON-AFRICAN AMERICAN 54; LIPASE 120 U/L (23-300)
--- NOTE | 2018-10-24 14:57 | RAD ---
Date of service: 10/24/2018 PROCEDURE: Radiographs of the Lumbar Spine. HISTORY: Back pain COMPARISON: No prior. FINDINGS: BONES: There is normal alignment of the lumbar vertebral bodies. There is normal lumbar lordosis. There is no acute fracture, spondylolysis or spondylolisthesis. Bone mineralization is normal. DISC SPACES: There is multilevel degenerative disc disease with anterior osteophytes, reduced disc heights and multilevel facet arthropathy, worse at L5-S1. OTHER FINDINGS: There are advanced atherosclerotic calcifications in the aorta. Mild degenerative osteoarthrosis in the sacroiliac joints. IMPRESSION: No acute fracture or spondylolysis. Multilevel degenerative disc disease, worse at L5-S1.
[2018-10-24 14:58] VITALS: BP 137/80; PULSE 88; RESP 16; TEMP 98.1; O2SAT 97
--- NOTE | 2018-10-24 15:25 | C.PDOC ---
History Of Present Illness 73 year old female presents to the ED for evaluation of bilateral flank pain which began around 3 weeks ago. Patient states she was evaluated by her PMD for these symptoms but he did not do anything. Patient also reports seeing blood when she wipes after using the bathroom. Patient denies fever, chills, nausea, vomiting, diarrhea. Time Seen by Provider: 10/24/18 13:12 Chief Complaint (Nursing): GI Problem History Per: Patient History/Exam Limitations: no limitations Onset/Duration Of Symptoms: Other (three weeks ) Quality Of Discomfort: "Pain" Previous Symptoms: Back Pain Past Medical History Reviewed: Historical Data, Nursing Documentation, Vital Signs Vital Signs: Last Vital Signs Temp 98.1 F 10/24/18 14:57 Pulse 88 10/24/18 14:57 Resp 16 10/24/18 14:57 BP 137/80 10/24/18 14:57 Pulse Ox 97 10/24/18 14:57 - Medical History PMH: Anxiety, Arthritis, Asthma, Diabetes (type 2), Fractures (LEFT ARM), HTN Denies: Chronic Kidney Disease Surgical History: Appendectomy (01/2018) - [employer] Procedures COLONOSCOPY (02/17/13) ESOPHAGOGASTRODUODENOSCOPY [EGD] W/CLOSED BIOPSY (02/17/13) Family History: States: Unknown Family Hx - Social History Hx Alcohol Use: No Hx Substance Use: No - Immunization History Hx Tetanus Toxoid Vaccination: No Hx Influenza Vaccination: No Hx Pneumococcal Vaccination: No Review Of Systems Constitutional: Negative for: Fever, Chills Gastrointestinal: Negative for: Nausea, Vomiting, Diarrhea Musculoskeletal: Positive for: Other (bilateral flank pain ) Physical Exam - Physical Exam Appears: Non-toxic, No Acute Distress Skin: Normal Color, Warm, Dry Head: Atraumatic, Normacephalic Eye(s): bilateral: Normal Inspection Oral Mucosa: Moist Neck: Supple Chest: Symmetrical, No Deformity, No Tenderness Cardiovascular: Rhythm Regular, No Murmur Respiratory: Normal Breath Sounds, No Rales, No Rhonchi, No Wheezing Back: Other (bilateral flank tenderness ) Extremity: Normal ROM, Capillary Refill (less than 2 seconds ) Neurological/Psych: Oriented x3, Normal Speech, Normal Cognition ED Course And Treatment - Laboratory Results Result Diagrams: 10/24/18 14:11 10/24/18 14:11 Lab Results: PT 11.3 SECONDS (9.7-12.2) 10/24/18 14:11 INR 1.0 10/24/18 14:11 APTT 32 SECONDS (21-34) 10/24/18 14:11 Total Bilirubin 0.4 mg/dL (0.2-1.3) 10/24/18 14:11 AST 22 U/L (14-36) 10/24/18 14:11 ALT 26 U/L (9-52) 10/24/18 14:11 Alkaline Phosphatase 137 U/L (38-126) H 10/24/18 14:11 Total Protein 6.9 g/dL (6.3-8.3) 10/24/18 14:11 Albumin 3.8 g/dL (3.5-5.0) 10/24/18 14:11 Globulin 3.1 gm/dL (2.2-3.9) 10/24/18 14:11 Albumin/Globulin Ratio 1.2 (1.0-2.1) 10/24/18 14:11 Lipase 120 U/L (23-300) 10/24/18 14:11 Urine Color Straw (YELLOW) 10/24/18 14:11 Urine Clarity Clear (Clear) 10/24/18 14:11 Urine pH 5.0 (5.0-8.0) 10/24/18 14:11 Ur Specific [facility] 1.006 (1.003-1.030) 10/24/18 14:11 Urine Protein Negative mg/dL (NEGATIVE) 10/24/18 14:11 Urine Glucose (UA) Normal mg/dL (Normal) 10/24/18 14:11 Urine Ketones Negative mg/dL (NEGATIVE) 10/24/18 14:11 Urine Blood Negative (NEGATIVE) 10/24/18 14:11 Urine Nitrate Negative (NEGATIVE) 10/24/18 14:11 Urine Bilirubin Negative (NEGATIVE) 10/24/18 14:11 Urine Urobilinogen Normal mg/dL (0.2-1.0) 10/24/18 14:11 Ur Leukocyte Esterase Neg Satish/uL (Negative) 10/24/18 14:11 Urine WBC (Auto) < 1 /hpf (0-5) 10/24/18 14:11 Ur Squamous Epith Cells < 1 /hpf (0-5) 10/24/18 14:11 O2 Sat by Pulse Oximetry: 97 Medical Decision Making Medical Decision Makin - patient states improvement hgb increased from last visit will discharge home to follow up with pmd within 2 days Disposition - Disposition Referrals: Deangelo Coates MD [Staff Provider] - Disposition: HOME/ ROUTINE Disposition Time: 15:26 Condition: STABLE Additional Instructions: follow up with your doctor within 2 days call to make an appointment continue your home medications return to ER if symptoms worsens or progress Instructions: Low Back Pain (DC), Flank Pain (DC) Forms: General Discharge Instructions, [facility] (Lao) - Clinical Impression Clinical Impression: Flank pain, Back pain - Scribe Statement The provider has reviewed the documentation as recorded by the Scribe (Heather Headley) Provider Attestation: All medical record entries made by the Scribe were at my direction and personally dictated by me. I have reviewed the chart and agree that the record accurately reflects my personal performance of the history, physical exam, medical decision making, and the department course for this patient. I have also personally directed, reviewed, and agree with the discharge instructions and disposition.
--- NOTE | 2018-10-24 15:27 | C.PDOC ---
History Of Present Illness 73 year old female presents to the ED for evaluation of bilateral flank pain which began around 3 weeks ago. Patient states she was evaluated by her PMD for these symptoms but he did not do anything. Patient also reports seeing blood when she wipes after using the bathroom. Patient denies fever, chills, nausea, vomiting, diarrhea. Time Seen by Provider: 10/24/18 13:12 Chief Complaint (Nursing): GI Problem History Per: Patient History/Exam Limitations: no limitations Quality Of Discomfort: "Pain" Past Medical History Reviewed: Historical Data, Nursing Documentation, Vital Signs Vital Signs: Last Vital Signs Temp 98.1 F 10/24/18 14:57 Pulse 88 10/24/18 14:57 Resp 16 10/24/18 14:57 BP 137/80 10/24/18 14:57 Pulse Ox 97 10/24/18 14:57 - Medical History PMH: Anxiety, Arthritis, Asthma, Diabetes (type 2), Fractures (LEFT ARM), HTN Denies: Chronic Kidney Disease Surgical History: Appendectomy (01/2018) - [facility] Procedures COLONOSCOPY (02/17/13) ESOPHAGOGASTRODUODENOSCOPY [EGD] W/CLOSED BIOPSY (02/17/13) Family History: States: Unknown Family Hx - Social History Hx Alcohol Use: No Hx Substance Use: No - Immunization History Hx Tetanus Toxoid Vaccination: No Hx Influenza Vaccination: No Hx Pneumococcal Vaccination: No ED Course And Treatment - Laboratory Results Result Diagrams: 10/24/18 14:11 10/24/18 14:11 Lab Results: PT 11.3 SECONDS (9.7-12.2) 10/24/18 14:11 INR 1.0 10/24/18 14:11 APTT 32 SECONDS (21-34) 10/24/18 14:11 Total Bilirubin 0.4 mg/dL (0.2-1.3) 10/24/18 14:11 AST 22 U/L (14-36) 10/24/18 14:11 ALT 26 U/L (9-52) 10/24/18 14:11 Alkaline Phosphatase 137 U/L (38-126) H 10/24/18 14:11 Total Protein 6.9 g/dL (6.3-8.3) 10/24/18 14:11 Albumin 3.8 g/dL (3.5-5.0) 10/24/18 14:11 Globulin 3.1 gm/dL (2.2-3.9) 10/24/18 14:11 Albumin/Globulin Ratio 1.2 (1.0-2.1) 10/24/18 14:11 Lipase 120 U/L (23-300) 10/24/18 14:11 Urine Color Straw (YELLOW) 10/24/18 14:11 Urine Clarity Clear (Clear) 10/24/18 14:11 Urine pH 5.0 (5.0-8.0) 10/24/18 14:11 Ur Specific [place] 1.006 (1.003-1.030) 10/24/18 14:11 Urine Protein Negative mg/dL (NEGATIVE) 10/24/18 14:11 Urine Glucose (UA) Normal mg/dL (Normal) 10/24/18 14:11 Urine Ketones Negative mg/dL (NEGATIVE) 10/24/18 14:11 Urine Blood Negative (NEGATIVE) 10/24/18 14:11 Urine Nitrate Negative (NEGATIVE) 10/24/18 14:11 Urine Bilirubin Negative (NEGATIVE) 10/24/18 14:11 Urine Urobilinogen Normal mg/dL (0.2-1.0) 10/24/18 14:11 Ur Leukocyte Esterase Neg Satish/uL (Negative) 10/24/18 14:11 Urine WBC (Auto) < 1 /hpf (0-5) 10/24/18 14:11 Ur Squamous Epith Cells < 1 /hpf (0-5) 10/24/18 14:11 O2 Sat by Pulse Oximetry: 97 (on RA) Pulse Ox Interpretation: Normal Medical Decision Making Medical Decision Makin - patient states improvement hgb increased from last visit will discharge home to follow up with pmd within 2 days Disposition Counseled Patient/Family Regarding: Studies Performed, Diagnosis, Need For Followup - Disposition Referrals: Deangelo Coates MD [Staff Provider] - Disposition Time: 15:26 Additional Instructions: follow up with your doctor within 2 days call to make an appointment continue your home medications return to ER if symptoms worsens or progress Instructions: Low Back Pain (DC), Flank Pain (DC) Forms: General Discharge Instructions, [facility] (Ivorian) - Clinical Impression Clinical Impression: Flank pain, Back pain - Scribe Statement The provider has reviewed the documentation as recorded by the Scribe (Heather Headley) Provider Attestation: All medical record entries made by the Scribe were at my direction and personally dictated by me. I have reviewed the chart and agree that the record accurately reflects my personal performance of the history, physical exam, medical decision making, and the department course for this patient. I have also personally directed, reviewed, and agree with the discharge instructions and disposition.
== END 2018-10-24 15:44 | disposition home or self-care (01) ==
LOC: C.ER 11:51
DX: R10.9 Unspecified abdominal pain (principal); M54.9 Dorsalgia, unspecified

== ENCOUNTER 2018-12-12 12:12 | Outpatient (CLI) | payer OTHER | END 2018-12-12 12:13 | disposition home or self-care (01) | LOC: C.MAMMO 12:13 | DX: Z12.31 Encounter for screening mammogram for malignant neoplasm of breast (principal) ==